=== PATIENT | female | born 1970 ===

== ENCOUNTER 2019-11-29 16:21 | Outpatient (CLI) | payer OTHER, SELFPAY ==
--- NOTE | ~2019-11-29 | CT_ITS ---
EXAMINATION: CT abdomen pelvis w con EXAM DATE: 11/29/2019 17:05 INDICATION: Low abdominal pain. TECHNIQUE: Spiral CT of the abdomen and pelvis was performed following intravenous injection of 100 m L Omnipaque 350. Axial, coronal and sagittal images were reviewed. The dose-length product (DLP) fo r this examination was 641.17 mGy-cm. The exposure was tailored according to patient size (auto mA e xposure control), and iterative reconstruction (ASIR) was used as additional dose reduction technique . There is no prior study for comparison. FINDINGS: Equivocal mild peripancreatic fat stranding, possible acute pancreatitis. Consider checking amylase/lipase levels. The liver, spleen, adrenal glands and pancreas are otherwise unremarkable. There are cholecystectomy clips. Portal and splenic veins are patent. Kidneys enhance symmetrically . There is no hydronephrosis. The uterus is unremarkable. The bladder is unremarkable. There is no retroperitoneal or pelvic lymphadenopathy. The appendix is normal. There is mild sigmoid colonic diverticulosis. There is no adjacent inflammat ory change to suggest diverticulitis. The stomach and small bowel are unremarkable. There is moderat e amount of colonic stool. No free intraperitoneal gas. The heart is normal in size. There are n o pericardial or pleural effusions. The lung bases are unremarkable. The bones are unremarkable. IMPRESSION: 1. Possible acute uncomplicated pancreatitis; consider checking amylase/lipase levels. 2. Mild colonic diverticulosis. Reviewed, dictated and finalized at location A.
[2019-11-29 17:49] LABS: Estimated Glomerular Filt Rate > 60
== END 2019-11-29 16:22 | disposition home or self-care (01) ==
PROVIDERS: PCP Physician Assistant; Visit Provider Physician Assistant
DX: R10.9 Unspecified abdominal pain (principal); K57.90 Diverticulosis of intestine, part unspecified, without perforation or abscess without bleeding
CPT/HCPCS: 36415; 74177; Q9967